=== PATIENT | male | born 1965 | race Caucasian/White ===

== ENCOUNTER → 2020-12-24 | Outpatient (CLI) | payer OTHER ==
[~2020-12-24] MED LIST: ASPI-886 PO; ATOR80TA72 PO; CARV12.511 PO; CLOP75TA PO; IBUP-1027 PO; ISOS30TA68 PO; LOSA100T14 PO; METO25TA4 PO; NITR0.4T22 SL; OXCA600T9 PO
== END ==
LOC: LAB 11:51
PROVIDERS: ATTEND Internal Medicine Cardiovascular Disease
DX: Z01.812 Encounter for preprocedural laboratory examination (principal); R07.9 Chest pain, unspecified; Z20.828 Contact with and (suspected) exposure to other viral communicable diseases
CPT/HCPCS: U0003

== ENCOUNTER 2020-12-27 08:09 | Outpatient (CLI) | payer OTHER ==
[2020-12-27] VITALS (12 sets, daily range): BP systolic 116–168; BP diastolic 51–73
[~2020-12-27] VITALS: Ht 177.8 cm; Wt 108.9 kg
[2020-12-27 08:57] LABS: HEMATOCRIT 45.2 % (39.0-53.0); HEMOGLOBIN 15.2 g/dL (13.0-17.5); RED BLOOD COUNT 4.94 x10^6/uL (4.30-5.70); RED CELL DISTRIBUTION WIDTH 13.8 % (11.5-14.5); WHITE BLOOD COUNT 7.9 x10^3/uL (4.0-11.0)
[2020-12-27 08:59] LABS: CALCIUM 9.2 mg/dL (8.5-10.1); CREATININE 0.9 mg/dL (0.7-1.3); GFR 87.6; POTASSIUM 4.5 mmol/L (3.5-5.1)
[2020-12-27 09:08] LABS: PROTHROMBIN TIME PATIENT 12.2 SEC (11.7-14.0)
[2020-12-27] MEDS ORDERED: ISOS30TA68 PO (09:39)
[2020-12-27] MEDS ORDERED: CLOP75TA PO (09:39)
[2020-12-27] MEDS ORDERED: METO25TA4 PO (09:39)
[2020-12-27] MEDS ORDERED: CARV12.511 PO (09:39)
[2020-12-27] MEDS ORDERED: ASPI-886 PO (09:39)
[2020-12-27] MEDS ORDERED: OXCA600T9 PO (09:39)
[2020-12-27] MEDS ORDERED: IBUP-1027 PO (09:39)
[2020-12-27] MEDS ORDERED: LOSA100T14 PO (09:39)
[2020-12-27] MEDS ORDERED: ATOR80TA72 PO (09:39)
[2020-12-27] MEDS ORDERED: NITR0.4T22 SL (09:39)
[2020-12-27] MEDS ORDERED: HEPARIN for ARTERIAL LINE 1,500 ML ONE (10:29)
[2020-12-27] MEDS ORDERED: IODIXANOL 320 MG/ML 100 ML VIAL. ONE (10:29)
[2020-12-27] MEDS ORDERED: LIDOCAINE 1% Multi-Dose 20 ML VIAL. ONE ×2 (10:29→11:01)
[2020-12-27] MEDS ORDERED: fentaNYL PF VIAL 100 MCG/2 ML VIAL ONE (10:34)
[2020-12-27] MEDS ORDERED: MIDAZOLAM HCL/PF 2 MG/2 ML VIAL. ONE ×2 (10:34→11:02)
--- NOTE | 2020-12-27 10:47 | PDOC ---
MODERATE SEDATION ASSESSMENT RISKS/ALTERNATIVES Risks/Alternatives Risks and alternatives of this type of sedation and procedure discussed with: RISK/ALTERNATIVES: Patient H & P ON CHART H & P H & P on chart and reviewed for co-morbid conditions and appropriate labs. H&P ON CHART: Yes STATUS PREG STATUS ASSESSED: N/A MEDS/ALLERGIES REVIEWED Meds/Allergies Reviewed Medications and Allergies including time and route of recently administered narcotics and sedatives. MEDS/ALLERGIES REVIEWED: Yes ASA RATING ASA RATING: II AIRWAY ASSESSMENT Airway Assessment Airway patency, oral function limitations, presence of caps, crowns, dentures, partials, and ability to extend neck assessed. AIRWAY ASSESSMENT: Yes MALLAMPATI SCORE MALLAMPATI SCORE: II PRE-SEDATION ASSESSMENT PRE-SEDATION ASSESSMENT: Yes JULIÁN PEREIRA MD Dec 27, 2020 10:47
[2020-12-27] MEDS ORDERED: LIDOCAINE 1% Multi-Dose 20 ML VIAL. INJ ONE (11:30)
[2020-12-27] MEDS ORDERED: fentaNYL PF VIAL 100 MCG/2 ML VIAL IV ONE (11:30)
[2020-12-27] MEDS ORDERED: CONTRAST GIVEN. MC PRN (11:30)
[2020-12-27] MEDS ORDERED: IODIXANOL 320 MG/ML 100 ML VIAL. IART ONE (11:30)
[2020-12-27] MEDS ORDERED: MIDAZOLAM HCL/PF 2 MG/2 ML VIAL. IV ONE ×2 (11:30→11:45)
[2020-12-27] MEDS ORDERED: 0.9 % SODIUM CHLORIDE 10 ML DISP.SYRIN. IV PRN (11:45)
[2020-12-27] MEDS ORDERED: fentaNYL PF VIAL 100 MCG/2 ML VIAL IM ONE (11:45)
[2020-12-27] MEDS ORDERED: NITROGLYCERIN SUBLINGUAL 0.4 MG BOTTLE OF 25. SL PRN (11:45)
[2020-12-27] MEDS ORDERED: IV NORMAL SALINE 1000ML BAG 1,000 ML IV SCH (12:00)
--- NOTE | 2020-12-27 15:37 | CARD ---
MR#: [id number] Date of Study: 12/27/2020 Ordering Physician: JULIÁN GREENBERG, Referring Physician: JULIÁN GREENBERG, Tech: Deo Vanegas, RT (R) APPROVED REPORT Procedures Left heart catheterization Selective coronary angiogram Left ventriculogram The patient is a 54-year-old male with a history of coronary disease and a previously placed stent. The patient has been having episodes of chest discomfort and a stress test show a mild abnormality ne ar the apex. In this setting we recommended a cardiac catheterization for definitive diagnosis. Ris ks and benefits were discussed with the patient. He agreed to proceed. After informed consent was obtained the patient was brought to the heart catheterization lab. The ar ea the right femoral artery was prepared in the usual manner with Betadine, sterile draping and local anesthetic. An 18-gauge needle was used to enter the right femoral artery, a wire placed and a 5 Fr ench sheath placed over the wire after 6 Nepali sheath difficulty passing into the vessel. A 5 Frenc h JL4 catheter was used to engage the left coronary system and sequential injections of various views were obtained. A 5 Nepali Aba right catheter was used to engage the right coronary artery and sequential injections of various views were obtained. A pigtail catheter advanced to the ascending a kelsi. A 30 degree FU left ventriculogram was performed after pressure measurements were made. Pull back pressures were then measured. The catheter was removed from the patient. All catheter exchange s were over a J-wire. The sheath was removed from the patient. Hemostasis was per direct pressure. There were no immediate complications. Findings. Hemodynamics. Left ventriculogram 134/5/17. Aortic root 132/88. Coronaries. Left main. The left main was a normal vessel with no lesions. Left anterior descending. The LAD was a moderate size vessel with normal distribution. There is a p atent stent in the mid vessel. Just prior to the stent there was a 25 to 30% lesion. Left circumflex. The left circumflex was a dominant vessel. It had a proximal 30% lesion present. Right coronary artery. The right coronary was a nondominant vessel. Had no lesions. Left ventriculogram. The left ventricle showed normal left ventricular systolic function with an est imated ejection fraction of 55 to 60%. Conclusions. 1. Patent stent in the LAD. 2. Mild to moderate disease in the LAD and left circumflex vessels. 3. Intact LV systolic function. Fluoroscopy time of 3.5 minutes. Dose of 55.19 Gycm2 Contrast of 119 cc. Sedation time of 47 minutes. Estimated blood loss to 15 cc. The patient was independently monitored throughout the case by the nursing staff. All appropriate protective equipment and badges were worn by the staff. Signed by : Julián Greenberg MD Electronically Approved : 12/27/2020 15:37:11
--- NOTE | 2020-12-27 15:56 | NUR ---
Discharge Note: MARGIE CHAVEZ Discharge instructions and discharge home medications reviewed with Patient and a copy given. All questions have been answered and understanding verbalized. The following instructions and handouts were given: groin site care and adult moderate sedation Discontinued lines and drains: Peripheral IV intact. Patient discharged to Home or Self Care with[facility]
--- NOTE | 2020-12-27 16:18 | NUR ---
Transported patient to ED entrance for discharge. RN had previously arranged transportation w/ [facility]-- was arranged ~1200 today. It took multiple attempts and messages to get dong of piano case and bench assembler to setup transport. Time was set for 1600 pickup. While taking patient to entrance, [facility] called outpatient department and stated it would be another 30 min before they arrived. RN transported patient back to OBS in wheelchair, ordered dinner and is awaiting transportation.
--- NOTE | 2020-12-27 16:50 | NUR ---
Patient taken to ER entrance again and no transport van was there at 1635, attempted to check outpatient entrance and main entrance with no success. Lela RN called this RN and advised to take patient to ER entrance for pickup. Patient got into transport van and taken back to [facility] with professional driver.
== END 2020-12-27 16:55 | disposition home or self-care (01) ==
LOC: CCL 08:09
PROVIDERS: ATTEND Internal Medicine Cardiovascular Disease
DX: R07.9 Chest pain, unspecified (principal); I25.119 Atherosclerotic heart disease of native coronary artery with unspecified angina pectoris; I10 Essential (primary) hypertension; E78.00 Pure hypercholesterolemia, unspecified; Z79.82 Long term (current) use of aspirin; Z79.899 Other long term (current) drug therapy; Z98.890 Other specified postprocedural states; Z88.2 Allergy status to sulfonamides
CPT/HCPCS: 36415; 80048; 85027; 85610; 93458; 99152; 99153; C1769; C1892; J1644; J2250; J3010; J3490; Q9967